=== PATIENT | female | born 1955 | race Caucasian/White ===

== ENCOUNTER 2022-10-14 09:20 | Day surgery (SDC) | payer MEDICARE ==
[2022-10-14] MEDS ORDERED: Lactated Ringers 1,000 ML IV SCH (09:30)
[2022-10-14] MEDS ORDERED: Lactated Ringers 1,000 ML IV ONE ×2 (09:31→11:55)
[2022-10-14] MEDS ORDERED: Versed 2 MG/2 ML Injection ONE (10:03)
[2022-10-14] MEDS ORDERED: Versed 2 MG/2 ML Injection IV PRN (10:12)
[2022-10-14] MEDS ORDERED: Xylocaine-Mpf 2% 5 Ml Vial ONE (11:17)
[2022-10-14] MEDS ORDERED: DIPRIVAN 200 MG/20 ML IV ONE ×3 (11:17→12:24)
[2022-10-14] MEDS ORDERED: PHENYLEPHRINE HCL ONE (12:36)
[2022-10-14 13:47] VITALS: PULSE 69; O2SAT 99
[2022-10-14 13:49] VITALS: BP 118/57
--- NOTE | 2022-10-15 10:56 | OP ---
SURGERY DATE/TIME: 10/14/2022 1154 PREOPERATIVE DIAGNOSIS: Weight loss, early satiety, last colonoscopy seven years ago, need for upper and lower endoscopy to rule out upper lower GI source for the weight loss and early satiety, aches and pains. POSTOPERATIVE DIAGNOSES: 1) Prepyloric antral area ulcer with evidence of some recent minor bleeding. 2) Erosive gastritis. 3) Tiny hiatal hernia. 4) Colon polyps. 5) Diverticulosis. 6) ASA Class III. 7) Withdrawal time on colonoscopy ten minutes. PROCEDURES: 1) EGD with cold biopsy of small bowel for celiac sprue. 2) Cold biopsy of antrum to evaluate for Helicobacter pylori. 3) Cold biopsy distal esophagus to evaluate for short segment abnormal variation of gastroesophageal junction distal esophagitis versus normal variation of gastroesophageal junction. 4) Cold biopsy mid esophagus to evaluate for eosinophilic esophagitis. 5) Colonoscopy to cecum. 6) Hot biopsy polypectomy transverse colon polyp removed in piecemeal fashion. 7) Hot snare polypectomy of additional transverse colon polyp. 8) Hot snare polypectomy of sigmoid colon polyp. SURGEON: Dr. Mookie Pfeiffer. ANESTHESIA: MAC. ESTIMATED BLOOD LOSS: Minimal. INDICATIONS: As noted above. Risks and benefits explained in detail and not limited to and consent obtained. DESCRIPTION OF PROCEDURE AND FINDINGS: The patient is taken to the endoscopy room. MAC anesthesia introduced. After official time out and no disagreement with planned procedure, bite block positioned. Video gastroscope easily passed down the esophagus to the patent pylorus to the junction of the second and third portion of the duodenum. Cold biopsy given her weight loss. Cold biopsy taken of small bowel for path for celiac and to rule out other causes. Scope pulled back into the antrum. She did have some erosive gastritis. There was evidence of an antral prepyloric area ulcer. Evidence of some recent bleeding. No visible ulcer but there was an old clot eschar. On retroflex, there was a very tiny hiatal hernia. She had some erosive gastritis. Otherwise cold biopsy is taken in the antrum for Helicobacter pylori. Cold biopsy is taken in distal esophagus. The Z-line was fairly crisp with one edge just a little bit salmon-pink mucosa extending upwards. Cold biopsy taken to evaluate for early esophagitis versus normal variation. Random cold biopsy taken in mid esophagus to evaluate for eosinophilic esophagitis. The scope is withdrawn. The patient tolerated the procedure well. Attention is then turned to colonoscopy. Digital rectal exam did not reveal any rectal masses. Video colonoscope inserted and passed up the tortuous sigmoid, descending, transverse, ascending colon around to the cecum. Appendiceal orifice and valve well visualized. The tip of the ileum was grossly unremarkable. Prep overall was fair, a little bit more limited with the cecum itself was a little bit more semisolid liqudy stool this is suctioned irrigated as clear as possible. Appendiceal orifice and valve photo documented. On withdrawal of the scope, small polyp in the more proximal transverse colon removed. A little bit of sessile about 3 to 3.5 mm removed in piecemeal fashion. It looked like it was removed pretty good but because of the piecemeal fashion and sessile nature she was at a little bit higher risk and it was felt she warranted follow up colonoscopy probably in two years. Otherwise scope pulled back, in more distal transverse colon another polyp removed with hot snare polypectomy that was about 3.0 to 3.5 mm. A 3.5 to 4 mm polyp more pedunculated in the sigmoid colon removed with hot snare polypectomy. Good hemostasis noted. Otherwise she had some small diverticulosis, mild diverticulitis. There are no signs of any large masses or obstructing lesions. She had some minimal internal hemorrhoids. The patient tolerated the procedure well. There were no immediate complications. I will discuss with the family in the waiting area.
== END 2022-10-14 13:45 | disposition home or self-care (01) ==
LOC: SDC 09:20
PROVIDERS: ATTEND Surgery
DX: K25.4 Chronic or unspecified gastric ulcer with hemorrhage (principal); R63.4 Abnormal weight loss; R68.81 Early satiety; K29.70 Gastritis, unspecified, without bleeding; K44.9 Diaphragmatic hernia without obstruction or gangrene; K57.30 Diverticulosis of large intestine without perforation or abscess without bleeding; D12.5 Benign neoplasm of sigmoid colon; D12.3 Benign neoplasm of transverse colon
CPT/HCPCS: J2250; J2370; J2704